=== PATIENT | male | born 2000 | race Caucasian/White ===

== ENCOUNTER 2022-07-11 22:31 | Emergency (ER) | payer BC ==
[2022-07-11] MEDS ORDERED: Diazepam 5 MG TAB ONE (23:53)
[2022-07-11] MEDS ORDERED: Ketorolac Tromethamine 30 MG/ML VIAL ONE (23:53)
== END 2022-07-12 00:14 | disposition home or self-care (01) ==
LOC: CSHERS 22:31
DX: M62.830 Muscle spasm of back (principal)
CPT/HCPCS: 96372; 99283; J1885